=== PATIENT | female | born 1965 | race Caucasian/White ===

== ENCOUNTER 2020-07-03 21:53 | Emergency (ER) | payer BC ==
[~2020-07-03] VITALS: Ht 172.7 cm; Wt 122.5 kg
[~2020-07-03 21:53] MED LIST: AMLO10 PO; CIPR500 PO; CRUTCH3 USE; CYCL10 PO; HYDACE5 PO; HYDCHL25 PO; IBUP400 PO; IBUP800 PO; MELO7.5 PO; NAPR220 PO; ONDA4ODT MM; OXYACE5T PO; POTA10T PO; PROACE100 PO; PROM25 PO; Phenergan25 M1 PO; Prinivil10 MG PO; RXPROACE PO; RXTRAM50 PO; TRAM50 PO
[2020-07-03] MEDS ORDERED: LOSARTAN/HCT TAB 50- PO (22:24)
[2020-07-03] MEDS ORDERED: ZIPRASIDONE HCL80 MG PO (22:25)
[2020-07-03] MEDS ORDERED: Ventolin/Prove6.7 GM (22:26)
[2020-07-03 23:03] LABS: BASOPHILS ABSOLUTE AUTO 0.04 K/mm3 (0.00-0.23); BASOPHILS PERCENT AUTO 0 % (0-2); EOSINOPHILS ABSOLUTE AUTO 0.43 K/mm3 (0.00-0.68); EOSINOPHILS PERCENT AUTO 4 % (0-6); Hemoglobin 15.3 g/dL (11.5-16.0); IMMATURE GRAN ABSOLUTE AUTO 0.06 K/mm3 (0.00-0.10); IMMATURE GRAN PERCENT AUTO 1 % (0-1); LYMPHOCYTES ABSOLUTE AUTO 3.58 K/mm3 (0.84-5.20); LYMPHOCYTES PERCENT AUTO 30 % (21-46); MONOCYTES ABSOLUTE AUTO 0.79 K/mm3 (0.16-1.47); MONOCYTES PERCENT AUTO 7 % (4-13); Mean Corpuscular HGB 28.7 pg (26.0-34.0); Mean Corpuscular HGB Conc 33.3 g/dL (31.5-36.5); Mean Corpuscular Volume 86 fL (80-100); Mean Platelet Volume 11.7 fL (9.1-12.4); NEUTROPHILS ABSOLUTE AUTO 7.02 K/mm3 (1.96-9.15); NEUTROPHILS PERCENT AUTO 59 % (41-73); Platelet Count 286 K/mm3 (150-400); RDW Coefficient Variation 13.2 % (11.7-14.2); Red Blood Cell Count 5.33 M/mm3 (3.80-5.20); White Blood Cell Count 11.92 K/mm3 (4.00-11.30)
[2020-07-03 23:17] LABS: International Normalized Ratio 0.95; Prothrombin Time Results 10.2 Sec (9.7-11.5)
[2020-07-03 23:24] LABS: Alanine Aminotransfer (ALT/SGP 21 U/L (12-78); Albumin, Blood 3.5 g/dL (3.4-5.0); Albumin/Globulin Ratio 0.8 (0.8-1.8); Alk Phos 92 U/L (50-136); Anion Gap 6 mmol/L (6-16); Aspartate Aminotrans (AST/SGOT 12 U/L (12-37); Bilirubin, Total 0.3 mg/dL (0.1-1.0); Blood Urea Nitrogen 16 mg/dL (8-24); CO2, Blood 30 mmol/L (21-32); Calcium, Blood 9.1 mg/dL (8.5-10.1); Chloride, Blood 105 mmol/L (98-108); Creatinine, Blood 0.84 mg/dL (0.40-1.00); Globulin, Blood 4.3 g/dL (2.2-4.0); Glomerular Filtration Rate >60 (60-); Glucose, Blood 136 mg/dL (70-99); Potassium, Blood 3.6 mmol/L (3.5-5.5); Sodium, Blood 141 mmol/L (136-145); Total Protein, Blood 7.8 g/dL (6.4-8.2); Troponin I <0.015 ng/mL (0.000-0.040)
== END 2020-07-04 00:31 | disposition home or self-care (01) ==
LOC: ER 21:53
PROVIDERS: Emergency Medicine
DX: R00.2 Palpitations (principal); F17.210 Nicotine dependence, cigarettes, uncomplicated; Z88.5 Allergy status to narcotic agent; Z88.8 Allergy status to other drugs, medicaments and biological substances; Z79.899 Other long term (current) drug therapy
CPT/HCPCS: 36415; 71046; 80053; 83880; 84484; 85025; 85610; 93005; 93010; 99285-25

== ENCOUNTER 2023-12-31 20:41 | Emergency (ER) | payer OTHER ==
[~2023-12-31] VITALS: Ht 172.7 cm; Wt 122.5 kg
[~2023-12-31 20:41] MED LIST changes: +LOSARTAN/HCT TAB 50- PO; +Ventolin/Prove6.7 GM; +ZIPRASIDONE HCL80 MG PO
[2023-12-31] MEDS ORDERED: Ondansetron HCl 2 MG / ML 2ML Vial IV ONE (20:50)
[2023-12-31 21:27] LABS: BASOPHILS ABSOLUTE AUTO 0.04 K/mm3 (0.00-0.23); BASOPHILS PERCENT AUTO 0 % (0-2); EOSINOPHILS ABSOLUTE AUTO 0.53 K/mm3 (0.00-0.68); EOSINOPHILS PERCENT AUTO 5 % (0-6); Hematocrit 45.2 % (33.0-51.0); Hemoglobin 14.9 g/dL (11.5-16.0); IMMATURE GRAN ABSOLUTE AUTO 0.02 K/mm3 (0.00-0.10); IMMATURE GRAN PERCENT AUTO 0 % (0-1); LYMPHOCYTES ABSOLUTE AUTO 2.92 K/mm3 (0.84-5.20); LYMPHOCYTES PERCENT AUTO 28 % (21-46); MONOCYTES ABSOLUTE AUTO 0.68 K/mm3 (0.16-1.47); MONOCYTES PERCENT AUTO 6 % (4-13); Mean Corpuscular HGB 28.8 pg (26.0-34.0); Mean Corpuscular Volume 87 fL (80-100); Mean Platelet Volume 11.6 fL (9.1-12.4); NEUTROPHILS PERCENT AUTO 60 % (41-73); Platelet Count 260 K/mm3 (150-400); RDW Standard Deviation 41.9 fL (35.1-46.3); Red Blood Cell Count 5.17 M/mm3 (3.80-5.20); White Blood Cell Count 10.59 K/mm3 (4.00-11.30)
[2023-12-31 21:31] LABS: Source, Urine Clean Catch
[2023-12-31 21:32] LABS: Bilirubin, Urine Neg (Neg); Blood, Urine Neg (Neg); Glucose Qualitative, Urine Neg (Neg); Ketones, Urine Neg (Neg); Leukocyte Esterase, Urine Neg (Neg); Nitrite, Urine Neg (Neg); Protein, Urine Neg (Neg); Urobilinogen, Urine NORM (Normal)
[2023-12-31] MEDS ORDERED: LORA10ER PO (21:40)
[2023-12-31] MEDS ORDERED: LAMO100 (21:40)
[2023-12-31 21:41] LABS: Appearance, Urine Clear (Clear); Color, Urine Yellow (P-Yellow)
[2023-12-31] MEDS ORDERED: LAMO25 (21:41)
[2023-12-31] MEDS ORDERED: Inderal 20 mg T20 MG (21:42)
[2023-12-31 21:43] LABS: Albumin, Blood 3.5 g/dL (3.4-5.0); Albumin/Globulin Ratio 0.9 (0.8-1.8); Bilirubin, Total 0.3 mg/dL (0.1-1.0); Bun/Creatinine Ratio 17.1 (12.0-20.0); Calcium, Blood 9.4 mg/dL (8.5-10.1); Creatinine, Blood 0.88 mg/dL (0.40-1.00); Globulin, Blood 3.7 g/dL (2.2-4.0); Potassium, Blood 3.8 mmol/L (3.5-5.5); Total Protein, Blood 7.2 g/dL (6.4-8.2)
[2023-12-31] MEDS ORDERED: Albuterol 2.5 MG/3 ML VIAL INH SCH (22:10)
[2023-12-31] MEDS ORDERED: Ketorolac Tromethamine 30mg Vial IV ONE (22:10)
[2023-12-31] MEDS ORDERED: NS 1,000 ML IV SCH (22:10)
[2024-01-01 00:30] VITALS: BP 196/111
[2024-01-01] MEDS ORDERED: MetroNIDAZOLE 500 MG Tab PO ONE (00:45)
[2024-01-01] MEDS ORDERED: Ciprofloxacin 500 MG Tab PO ONE (00:45)
[2024-01-01] MEDS ORDERED: CIPR500 PO (00:46)
[2024-01-01] MEDS ORDERED: METR500 PO (00:46)
== END 2024-01-01 01:02 | disposition home or self-care (01) ==
LOC: ER 20:41
PROVIDERS: Physician Assistant
DX: K57.32 Diverticulitis of large intestine without perforation or abscess without bleeding (principal); I10 Essential (primary) hypertension; F17.210 Nicotine dependence, cigarettes, uncomplicated; Z79.899 Other long term (current) drug therapy; Z88.5 Allergy status to narcotic agent; Z88.8 Allergy status to other drugs, medicaments and biological substances
CPT/HCPCS: 74177; 80053; 81003; 83690; 85025; 94640; 94664; 96361; 96374-59; 99284-25; A9270; J1885; J7030; Q9967

== ENCOUNTER 2024-05-26 10:54 | Day surgery (SDC) | payer OTHER ==
[~2024-05-26] VITALS: Ht 172.7 cm; Wt 121.4 kg
[~2024-05-26 10:54] MED LIST changes: +Inderal 20 mg T20 MG; +LAMO100; +LAMO25; +LORA10ER PO; +Lactated Ringer's 1,000 ML IV ONE; +METR500 PO
[2024-05-26] MEDS ORDERED: Lactated Ringer's 1,000 ML IV ONE (12:13)
[2024-05-26] MEDS ORDERED: Lidocaine HCl 4% 5 ML SDA ONE (12:27)
[2024-05-26] MEDS ORDERED: Ipratropium/Albuterol SulF 2.5-0.5MG/3 ML Amp ONE (12:30)
[2024-05-26] MEDS ORDERED: propofoL 50 ML IV ONE (12:34)
[2024-05-26] MEDS ORDERED: Glycopyrrolate 0.2 MG/ML 1MLVIAL ONE (13:09)
[2024-05-26 14:20] VITALS: BP 139/89
== END 2024-05-26 14:07 | disposition home or self-care (01) ==
LOC: ORSCSDS 10:54
PROVIDERS: Internal Medicine Gastroenterology
PROC: 0DBK8ZX Excision of Ascending Colon, Via Natural or Artificial Opening Endoscopic, Diagnostic (ICD-10-PCS; principal; 2024-05-26 12:30)
PROC: 0DJ08ZZ Inspection of Upper Intestinal Tract, Via Natural or Artificial Opening Endoscopic (ICD-10-PCS; principal; 2024-05-26 12:30)
DX: K92.1 Melena (principal); K57.30 Diverticulosis of large intestine without perforation or abscess without bleeding; K21.9 Gastro-esophageal reflux disease without esophagitis; R10.84 Generalized abdominal pain; D12.2 Benign neoplasm of ascending colon; R19.4 Change in bowel habit; I10 Essential (primary) hypertension; F17.210 Nicotine dependence, cigarettes, uncomplicated; J44.89 Other specified chronic obstructive pulmonary disease; Z79.899 Other long term (current) drug therapy; L50.2 Urticaria due to cold and heat; E66.01 Morbid (severe) obesity due to excess calories; Z68.41 Body mass index [BMI] 40.0-44.9, adult
CPT/HCPCS: 88305; J2003; J2704; J7120